=== PATIENT | male | born 1990 | race American Indian/Alaskan Native ===

== ENCOUNTER 2021-02-26 19:50 | Emergency (ER) | payer SELFPAY ==
--- NOTE | 2021-02-26 22:26 | Emergency Department Report ---
ED Abdominal Pain HPI - General Chief Complaint: Abdominal Pain Stated Complaint: LOWER AB PAIN Time Seen by Provider: 02/26/21 22:17 Source: patient Mode of arrival: Ambulatory Limitations: No Limitations - History of Present Illness Initial Comments: 30-year-old F Estonian male presents emerge department complaining of pain to the lower abdomen in a sharp fashion which radiates across the abdomen and down towards his testicle region associated with nausea but no vomiting. No fever, chills, sweats no hematuria no no dysuria no penile discharge no testicular swelling. No actual testicular pain. Reports no palliative factors noted. - Related Data Previous Rx's Medication Instructions Recorded Last Taken Type Ciprofloxacin HCl 500 mg PO BID #20 tablet 02/27/21 Unknown Rx Ketorolac [Toradol] 10 mg PO Q6H PRN #14 tablet 02/27/21 Unknown Rx Tamsulosin [Flomax] 0.4 mg PO QDAY #14 cap 02/27/21 Unknown Rx Allergies Allergy/AdvReac Type Severity Reaction Status Date / Time No Known Allergies Allergy Unverified 02/26/21 22:02 ED Review of Systems ROS: Stated complaint: LOWER AB PAIN Other details as noted in HPI Comment: All other systems reviewed and negative ED Past Medical Hx - Past Medical History Previous Medical History?: No - Surgical History Past Surgical History?: No - Medications Home Medications: Home Medications Medication Instructions Recorded Confirmed Last Taken Type Ciprofloxacin HCl 500 mg PO BID #20 tablet 02/27/21 Unknown Rx Ketorolac [Toradol] 10 mg PO Q6H PRN #14 tablet 02/27/21 Unknown Rx Tamsulosin [Flomax] 0.4 mg PO QDAY #14 cap 02/27/21 Unknown Rx ED Physical Exam - General Limitations: No Limitations General appearance: alert, in no apparent distress - Head Head exam: Present: atraumatic, normocephalic - Eye Eye exam: Present: normal appearance, PERRL - ENT ENT exam: Present: mucous membranes moist - Neck Neck exam: Present: normal inspection - Respiratory Respiratory exam: Present: normal lung sounds bilaterally. Absent: respiratory distress - Cardiovascular Cardiovascular Exam: Present: regular rate, normal rhythm. Absent: systolic murmur, diastolic murmur, rubs, gallop - GI/Abdominal GI/Abdominal exam: Present: soft, tenderness (Suprapubic tenderness with palpation. 10 the right lower quadrant as well. No Rovsing, no Alvarado Trevizo, no tenderness at McBurney's), normal bowel sounds - Rectal Rectal exam: Present: deferred - Extremities Exam Extremities exam: Present: normal inspection, full ROM, normal capillary refill - Back Exam Back exam: Present: normal inspection, CVA tenderness (R), CVA tenderness (L) - Neurological Exam Neurological exam: Present: alert, oriented X3, CN II-XII intact, normal gait - Psychiatric Psychiatric exam: Present: normal affect, normal mood - Skin Skin exam: Present: warm, dry, intact, normal color. Absent: rash, diaphoretic, erythema, pallor, abrasion, ecchymosis ED Medical Decision Making - Lab Data Result diagrams: 02/26/21 22:45 02/26/21 22:45 - Radiology Data Radiology results: report reviewed [address] [address] Cat Scan Report Signed Patient: MIGUEL REYES MR#: [id number] : 1990 Acct:[id number] Age/Sex: 30 / M ADM Date: 02/26/21 Loc: ED Attending Dr: Ordering Physician: LAYA BAH Date of Service: 02/26/21 Procedure(s): CT abdomen pelvis w con Accession Number(s): [id number] cc: LAYA BAH CT abdomen pelvis w con INDICATION / CLINICAL INFORMATION: Pt complains of lower abd pain that radiates to Testicles. TECHNIQUE: Axial CT images were obtained through the abdomen and pelvis after IV contrast. All CT scans at this location are performed using CT dose reduction for ALARA by means of automated exposure control. COMPARISON: None available. FINDINGS: LOWER CHEST: No significant abnormality LIVER: No significant abnormality GALLBLADDER/BILIARY TREE: No significant abnormality PANCREAS: No significant abnormality SPLEEN: No significant abnormality ADRENALS: No significant abnormality KIDNEYS / URETER: 8 mm stone is present within the right renal pelvis. There is adjacent urothelial thickening and inflammatory stranding. No significant hydronephrosis. Additional 3 mm nonobstructive stone is present within the lower pole the right kidney. Kidneys enhance symmetrically. No hydronephrosis on the left. URINARY BLADDER: Bladder is partially decompressed, though grossly unremarkable. REPRODUCTIVE ORGANS: No significant abnormality STOMACH / BOWEL: No significant abnormality. The appendix is normal in caliber. LYMPH NODES: No significant adenopathy. VASCULATURE: No significant abnormality. OTHER: No free air, free fluid, or focal fluid collection is identified. SKELETAL SYSTEM: No acute osseous findings. IMPRESSION: 1. 8 mm stone in the right renal pelvis. There is no significant hydronephrosis, though there is mild urothelial thickening and inflammatory stranding surrounding the renal pelvis, may reflect early obstruction. 2. Additional nonobstructive 3 mm stone in the right kidney. There is no renal or ureteral calculus or hydronephrosis on the left. 3. No other acute abnormality. Signer Name: Jaxon Razo MD Signed: 02/27/2021 12:43 AM Workstation Name: [id number] Transcribed By: MEAGHAN Dictated By: JAXON RAZO MD Electronically Authenticated By: JAXON RAZO MD Signed Date/Time: 02/27/2142 DD/ TD/TT: - Medical Decision Making Clinically the patient presents with nephrolithasis. IV pain medications, antiemetics, and IV fluids were given. A CT Abdomen/Pelvis was obtained for concern for a possible obstructing kidney stone and to rule out other pathologic conditions. The CT confirmed revealed a stone at the kidney and the junction. The patient's labs were significant for . With pain medication the patient improved significantly. The patient is referred to the on-call urologist for follow up and is discharged with oral narcotics for pain control, Flomax, antiemetics, and given the following return precautions: Fever > 100.5, pain not controlled with narcotics, vomiting or any other concerns and to strain the urine Critical care attestation.: If time is entered above; I have spent that time in minutes in the direct care of this critically ill patient, excluding procedure time. ED Disposition Clinical Impression: Kidney stones Disposition: 01 HOME / SELF CARE / HOMELESS Is pt being admited?: No Does the pt Need Aspirin: No Condition: Stable Instructions: Low-Purine Eating Plan, Kidney Stones, Kidney Stones, Tlfo-[id number]-[id number], Renal Colic, Laser Therapy for Kidney Stones Prescriptions: Ciprofloxacin HCl 500 mg PO BID #20 tablet Tamsulosin [Flomax] 0.4 mg PO QDAY #14 cap Ketorolac [Toradol] 10 mg PO Q6H PRN #14 tablet PRN Reason: Pain Referrals: [facility] [Provider Group] - 3-5 Days [facility] [Provider Group] - 3-5 Days [facility], [Primary Care Provider] - 3-5 Days
[2021-02-26 23:30] LABS: Alanine Aminotransferase 20 units/L (7-56); Albumin 4.3 g/dL (3.9-5); BUN/Creatinine Ratio 10; Bilirubin,Direct < 0.2 mg/dL (0-0.2); Blood Urea Nitrogen 8 mg/dL (9-20); Hemolysis Index 7
[2021-02-26 23:45] LABS: Basophils # (Auto) 0.1 K/mm3 (0.0-0.1); Eosinophils % (Auto) 0.5 % (0.0-4.3); Hematocrit 38.6 % (35.5-45.6); Hemoglobin 12.9 gm/dl (11.8-15.2); Lymphocytes # (Auto) 2.2 K/mm3 (1.2-5.4); Lymphocytes % (Auto) 25.4 % (13.4-35.0); Mean Corpuscular HGB Conc 33 % (32-34); Mean Corpuscular Volume 87 fl (84-94); Monocytes # (Auto) 0.7 K/mm3 (0.0-0.8); Monocytes % (Auto) 8.1 % (0.0-7.3); Platelet Count 294 K/mm3 (140-440); Red Blood Count 4.45 M/mm3 (3.65-5.03); Red Cell Distribution Width 13.2 % (13.2-15.2)
--- NOTE | 2021-02-27 00:48 | Cat Scan Report ---
CT abdomen pelvis w con INDICATION / CLINICAL INFORMATION: Pt complains of lower abd pain that radiates to Testicles. TECHNIQUE: Axial CT images were obtained through the abdomen and pelvis after IV contrast. All CT sc ans at this location are performed using CT dose reduction for ALARA by means of automated exposure c ontrol. COMPARISON: None available. FINDINGS: LOWER CHEST: No significant abnormality LIVER: No significant abnormality GALLBLADDER/BILIARY TREE: No significant abnormality PANCREAS: No significant abnormality SPLEEN: No significant abnormality ADRENALS: No significant abnormality KIDNEYS / URETER: 8 mm stone is present within the right renal pelvis. There is adjacent urothelial t hickening and inflammatory stranding. No significant hydronephrosis. Additional 3 mm nonobstructive s tone is present within the lower pole the right kidney. Kidneys enhance symmetrically. No hydronephro sis on the left. URINARY BLADDER: Bladder is partially decompressed, though grossly unremarkable. REPRODUCTIVE ORGANS: No significant abnormality STOMACH / BOWEL: No significant abnormality. The appendix is normal in caliber. LYMPH NODES: No significant adenopathy. VASCULATURE: No significant abnormality. OTHER: No free air, free fluid, or focal fluid collection is identified. SKELETAL SYSTEM: No acute osseous findings. IMPRESSION: 1. 8 mm stone in the right renal pelvis. There is no significant hydronephrosis, though there is mild urothelial thickening and inflammatory stranding surrounding the renal pelvis, may reflect early obs truction. 2. Additional nonobstructive 3 mm stone in the right kidney. There is no renal or ureteral calculus o r hydronephrosis on the left. 3. No other acute abnormality. Signer Name: Salo Razo MD Signed: 02/27/2021 12:43 AM Workstation Name: [id number]
[2021-02-27 03:11] VITALS: BP 139/84
== END 2021-02-27 02:30 | disposition home or self-care (01) ==
LOC: ED 19:50
DX: N20.0 Calculus of kidney (principal)
CPT/HCPCS: 36415; 74177; 80048; 80076; 83690; 85025; 99284; Q9967

== ENCOUNTER 2021-04-13 19:56 | Emergency (ER) | payer SELFPAY ==
[2021-04-13 20:11] VITALS: BP 135/81
[2021-04-13] MEDS ORDERED: ONDANSETRON 4 MG/2 ML INJ IV ONE (20:25)
[2021-04-13] MEDS ORDERED: SODIUM CHLORIDE 0.9% 1000 ML 1,000 ML IV ONE (20:25)
[2021-04-13] MEDS ORDERED: MORPHINE 4 MG/1 ML INJ IV ONE (20:25)
[2021-04-13 21:17] LABS: Basophils # (Auto) 0.1 K/mm3 (0.0-0.1); Basophils % (Auto) 1.3 % (0.0-1.8); Eosinophils # (Auto) 0.2 K/mm3 (0.0-0.4); Eosinophils % (Auto) 2.8 % (0.0-4.3); Hematocrit 38.2 % (35.5-45.6); Hemoglobin 12.5 gm/dl (11.8-15.2); Lymphocytes % (Auto) 43.5 % (13.4-35.0); Mean Corpuscular HGB Conc 33 % (32-34); Mean Corpuscular Volume 86 fl (84-94); Monocytes # (Auto) 0.8 K/mm3 (0.0-0.8); Monocytes % (Auto) 12.3 % (0.0-7.3); Platelet Count 256 K/mm3 (140-440); Red Blood Count 4.42 M/mm3 (3.65-5.03); Red Cell Distribution Width 12.6 % (13.2-15.2)
[2021-04-13 22:10] LABS: Alanine Aminotransferase 17 units/L (7-56); Albumin 4.1 g/dL (3.9-5); BUN/Creatinine Ratio 12; Blood Urea Nitrogen 11 mg/dL (9-20); Calcium 9.7 mg/dL (8.4-10.2); Hemolysis Index 44
--- NOTE | 2021-04-13 23:50 | Emergency Department Report ---
ED Abdominal Pain HPI - General Chief Complaint: Abdominal Pain Stated Complaint: ABDOMINAL PAIN/POSSIBLE KIDNEY STONE PUI?: No Source: patient Mode of arrival: Ambulatory Limitations: No Limitations - History of Present Illness Initial Comments: Patient is a 31-year-old -Kitt[place] male with a history of kidney stones who presents to the ED with complaint of acute onset persistent severe right flank pain that radiates to the right lower quadrant and suprapubic area with nausea and vomiting for the last 3 days. Patient states that the last kidney stones he had was about 3 or 4 weeks ago and that the current symptoms are similar to the previous symptoms when he had kidney stones. Patient denies fever, chills, diarrhea, dizziness, syncope, cough, traumatic injury, heavy lifting, hematuria, testicular pain, dysuria, urinary frequency and urgency, numbness and tingling or weakness of lower extremities bilaterally. MD Complaint: abdominal pain (Right lower quadrant), flank pain (Right flank pain) -: Sudden, days(s) (3) Location: RLQ, suprapubic, R flank Radiation: RLQ, suprapubic, R flank Migration to: no migration Severity: severe Severity scale (0 -10): 10 Quality: cramping, aching, sharp Consistency: constant Improves With: nothing Worsens With: movement Context: other (History of kidney stones) Associated Symptoms: nausea, vomiting, anorexia. denies: denies other symptoms, diarrhea, fever, constipation, dysuria, hematemesis, hematochezia, melena, syncope, other - Related Data Previous Rx's Medication Instructions Recorded Last Taken Type Ciprofloxacin HCl 500 mg PO BID #20 tablet 02/27/21 Unknown Rx Ketorolac [Toradol] 10 mg PO Q6H PRN #14 tablet 02/27/21 Unknown Rx Tamsulosin [Flomax] 0.4 mg PO QDAY #14 cap 02/27/21 Unknown Rx Ketorolac [Toradol] 10 mg PO Q8H PRN #20 tablet 04/14/21 Unknown Rx Ondansetron [Zofran Odt] 4 mg PO Q6HR PRN #20 tab.rapdis 04/14/21 Unknown Rx Sulfamethoxazole/Trimethoprim 1 each PO Q12H #20 tablet 04/14/21 Unknown Rx [Bactrim DS TAB] Tamsulosin [Flomax] 0.4 mg PO QDAY #14 cap 04/14/21 Unknown Rx oxyCODONE /ACETAMINOPHEN [Percocet 1 tab PO Q6HR PRN #12 tablet 04/14/21 Unknown Rx 5/325] Allergies Allergy/AdvReac Type Severity Reaction Status Date / Time No Known Allergies Allergy Unverified 02/26/21 22:02 ED Review of Systems ROS: Stated complaint: ABDOMINAL PAIN/POSSIBLE KIDNEY STONE Other details as noted in HPI Constitutional: denies: chills, fever Eyes: denies: eye pain, eye discharge, vision change ENT: denies: ear pain, throat pain Respiratory: denies: cough, shortness of breath, wheezing Cardiovascular: denies: chest pain, palpitations Endocrine: no symptoms reported Gastrointestinal: abdominal pain (Right flank pain that radiates to the right lower quadrant and suprapubic area), nausea, vomiting. denies: diarrhea Genitourinary: denies: urgency, dysuria Musculoskeletal: denies: back pain, joint swelling, arthralgia Skin: denies: rash, lesions Neurological: denies: headache, weakness, paresthesias Psychiatric: denies: anxiety, depression Hematological/Lymphatic: denies: easy bleeding, easy bruising ED Past Medical Hx - Past Medical History Previous Medical History?: No Hx Kidney Stones: Yes - Surgical History Past Surgical History?: No - Medications Home Medications: Home Medications Medication Instructions Recorded Confirmed Last Taken Type Ciprofloxacin HCl 500 mg PO BID #20 tablet 02/27/21 Unknown Rx Ketorolac [Toradol] 10 mg PO Q6H PRN #14 tablet 02/27/21 Unknown Rx Tamsulosin [Flomax] 0.4 mg PO QDAY #14 cap 02/27/21 Unknown Rx Ketorolac [Toradol] 10 mg PO Q8H PRN #20 tablet 04/14/21 Unknown Rx Ondansetron [Zofran Odt] 4 mg PO Q6HR PRN #20 tab.rapdis 04/14/21 Unknown Rx Sulfamethoxazole/Trimethoprim 1 each PO Q12H #20 tablet 04/14/21 Unknown Rx [Bactrim DS TAB] Tamsulosin [Flomax] 0.4 mg PO QDAY #14 cap 04/14/21 Unknown Rx oxyCODONE /ACETAMINOPHEN [Percocet 1 tab PO Q6HR PRN #12 tablet 04/14/21 Unknown Rx 5/325] ED Physical Exam - General Limitations: No Limitations General appearance: alert, in no apparent distress - Head Head exam: Present: atraumatic, normocephalic, normal inspection - Eye Eye exam: Present: normal appearance, PERRL, EOMI Pupils: Present: normal accommodation - ENT ENT exam: Present: normal exam, normal orophraynx, mucous membranes moist, TM's normal bilaterally, normal external ear exam - Neck Neck exam: Present: normal inspection, full ROM. Absent: tenderness - Respiratory Respiratory exam: Present: normal lung sounds bilaterally. Absent: respiratory distress, wheezes, rales, rhonchi, chest wall tenderness, accessory muscle use, decreased breath sounds, other - Cardiovascular Cardiovascular Exam: Present: normal rhythm, normal heart sounds. Absent: systolic murmur, diastolic murmur, rubs, gallop - GI/Abdominal GI/Abdominal exam: Present: soft, tenderness (Palpable right flank tenderness, no guarding or rebound), normal bowel sounds. Absent: guarding, rebound, hyperactive bowel sounds, hypoactive bowel sounds, organomegaly, mass - Extremities Exam Extremities exam: Present: normal inspection, full ROM, normal capillary refill - Back Exam Back exam: Present: normal inspection, full ROM. Absent: tenderness, CVA tenderness (R), CVA tenderness (L), muscle spasm, paraspinal tenderness, vertebral tenderness - Neurological Exam Neurological exam: Present: alert, oriented X3, CN II-XII intact, normal gait, reflexes normal - Psychiatric Psychiatric exam: Present: normal affect, normal mood - Skin Skin exam: Present: warm, dry, intact, normal color. Absent: rash ED Course Vital Signs 04/13/21 04/13/21 20:09 20:58 Temperature 98.0 F Pulse Rate 56 L Respiratory 16 20 Rate Blood Pressure 135/81 O2 Sat by Pulse 98 Oximetry ED Medical Decision Making - Lab Data Result diagrams: 04/13/21 20:32 04/13/21 20:32 - Radiology Data Radiology results: report reviewed, image reviewed [address] [address] Cat Scan Report Signed Patient: MIGUEL REYES MR#: [id number] : 1990 Acct:[id number] Age/Sex: 31 / M ADM Date: 04/13/21 Loc: ED Attending Dr: Ordering Physician: LAYA EDEN Date of Service: 04/13/21 Procedure(s): CT abdomen pelvis wo con Accession Number(s): [id number] cc: LAYA EDEN CT ABDOMEN AND PELVIS WITHOUT CONTRAST INDICATION / CLINICAL INFORMATION: Right flank pain. TECHNIQUE: Axial CT images were obtained through the abdomen and pelvis without IV contrast. All CT scans at this location are performed using CT dose reduction for ALARA by means of automated exposure control. COMPARISON: CT dated 02/27/21 FINDINGS: LOWER CHEST: No significant abnormality. LIVER: No significant abnormality. GALLBLADDER: No significant abnormality. BILE DUCTS: No significant abnormality. PANCREAS: No significant abnormality. SPLEEN: No significant abnormality. ADRENALS: No significant abnormality. RIGHT KIDNEY / URETER: 11 mm right pelvic stone has migrated to the ureteropelvic junction with mild hydronephrosis. 3 mm nonobstructing stone in the right renal pelvis. Mild right perinephric stranding. LEFT KIDNEY / URETER: No significant abnormality. STOMACH / SMALL BOWEL: No significant abnormality. COLON: No significant abnormality. APPENDIX: No significant abnormality. PERITONEUM: No free fluid. No free air. No fluid collection. LYMPH NODES: No significant adenopathy. AORTA / ARTERIES: No significant abnormality. IVC / VEINS: No significant abnormality. URINARY BLADDER: No significant abnormality. REPRODUCTIVE ORGANS: No significant abnormality. ADDITIONAL FINDINGS: None. SKELETAL SYSTEM: No significant abnormality. IMPRESSION: 1. 11 mm obstructing stone at the right ureteropelvic junction with mild right hydronephrosis. Signer Name: Danilo Adams MD Signed: 04/14/2021 3:15 AM Workstation Name: [id number] Transcribed By: DT Dictated By: Tremayne Adams MD Electronically Authenticated By: Tremayne Adams MD Signed Date/Time: 04/14/215 DD/ 0306 TD/TT: - Medical Decision Making This is a 31-year-old -Kitt[place] male with a history of kidney stones who presents to the ED with complaint of acute onset persistent severe right flank pain that radiates to the right lower quadrant and suprapubic area with nausea and vomiting for the last 3 days. Patient states that the last kidney stones he had was about 3 or 4 weeks ago and that the current symptoms are similar to the previous symptoms when he had kidney stones. In the ED, patient is alert and oriented x3 and is not in any distress. Patient was treated for pain in the ED and also given antiemetics, normal saline 1 L IV bolus. Abdomen pelvis CT scan with contrast showed an 11 mm right pelvic stone has migrated to the uretero pelvic junction with mild hydronephrosis. 3 mm nonobstructing stone in the right renal pelvis. Mild right perinephric. Patient received Rocephin 1 g IV x1. On reevaluation, patient's pain is well controlled medication. Patient will discharge home on pain medications, antibiotics and also given referral to the urologist Dr. Lucia for further evaluation. Patient was advised to contact the urologist office first thing in the morning on Friday, April 19, 2021 to schedule a follow-up appointment. - Differential Diagnosis Kidney stone; appendicitis; UTI; colitis; gastroenteritis Critical care attestation.: If time is entered above; I have spent that time in minutes in the direct care of this critically ill patient, excluding procedure time. ED Disposition Clinical Impression: Acute abdominal pain in right flank, Nausea and vomiting in adult patient, Kidney stone on right side, Acute urinary tract infection Disposition: 01 HOME / SELF CARE / HOMELESS Is pt being admited?: No Does the pt Need Aspirin: No Condition: Stable Instructions: Nausea and Vomiting, Adult, [id number], Flank Pain, Adult, [id number], Kidney Stones, [id number], Renal Colic, [id number], Urinary Tract Infection, Adult, [id number] Additional Instructions: All lab test results were reviewed and are all nonactionable except for urinalysis that showed urinary tract infection. Abdomen pelvis CT scan with contrast showed an 11 mm right pelvic stone has migrated to the ureteropelvic junction with mild hydronephrosis. 3 mm nonobstructing stone in the right renal pelvis. Mild right perinephric. Therefore take medications with food, drink plenty of fluids and follow-up with Dr. Lucia, the Urologist in 2 to 3 days for reevaluation. Return to the ED immediately if symptoms get worse. Prescriptions: Sulfamethoxazole/Trimethoprim [Bactrim DS TAB] 1 each PO Q12H #20 tablet Tamsulosin [Flomax] 0.4 mg PO QDAY #14 cap oxyCODONE /ACETAMINOPHEN [Percocet 5/325] 1 tab PO Q6HR PRN #12 tablet PRN Reason: Pain Ketorolac [Toradol] 10 mg PO Q8H PRN #20 tablet PRN Reason: Pain Ondansetron [Zofran Odt] 4 mg PO Q6HR PRN #20 tab.rapdis PRN Reason: Nausea [facility] - 3-5 Days BRENNAN LUCIA MD [Staff Physician] - 3-5 Days Forms: Work/School Release Form(ED) Time of Disposition: 06:08 Print Language: SLOVENIAN
[2021-04-14 00:42] LABS: Bilirubin,Urine NEG (Negative); Blood,Urine SM (Negative); Color,Urine Yellow (Yellow); Mucus,Urine FEW /HPF; Urobilinogen,Urine < 2.0 mg/dL (<2.0)
[2021-04-14] MEDS ORDERED: METOCLOPRAMIDE 10 MG/2 ML INJ IV ONE (00:59)
[2021-04-14] MEDS ORDERED: KETOROLAC 30 MG/1 ML INJ IV ONE (00:59)
[2021-04-14] MEDS ORDERED: cefTRIAXone/NS 1 GM/50 ML 1 GM/50 ML BAG IV ONE (00:59)
--- NOTE | 2021-04-14 03:19 | Cat Scan Report ---
CT ABDOMEN AND PELVIS WITHOUT CONTRAST INDICATION / CLINICAL INFORMATION: Right flank pain. TECHNIQUE: Axial CT images were obtained through the abdomen and pelvis without IV contrast. All CT scans at this location are performed using CT dose reduction for ALARA by means of automated exposure control. COMPARISON: CT dated 02/27/21 FINDINGS: LOWER CHEST: No significant abnormality. LIVER: No significant abnormality. GALLBLADDER: No significant abnormality. BILE DUCTS: No significant abnormality. PANCREAS: No significant abnormality. SPLEEN: No significant abnormality. ADRENALS: No significant abnormality. RIGHT KIDNEY / URETER: 11 mm right pelvic stone has migrated to the ureteropelvic junction with mild hydronephrosis. 3 mm nonobstructing stone in the right renal pelvis. Mild right perinephric stranding . LEFT KIDNEY / URETER: No significant abnormality. STOMACH / SMALL BOWEL: No significant abnormality. COLON: No significant abnormality. APPENDIX: No significant abnormality. PERITONEUM: No free fluid. No free air. No fluid collection. LYMPH NODES: No significant adenopathy. AORTA / ARTERIES: No significant abnormality. IVC / VEINS: No significant abnormality. URINARY BLADDER: No significant abnormality. REPRODUCTIVE ORGANS: No significant abnormality. ADDITIONAL FINDINGS: None. SKELETAL SYSTEM: No significant abnormality. IMPRESSION: 1. 11 mm obstructing stone at the right ureteropelvic junction with mild right hydronephrosis. Signer Name: Danilo Adams MD Signed: 04/14/2021 3:15 AM Workstation Name: [id number]
== END 2021-04-14 08:10 | disposition home or self-care (01) ==
LOC: ED 19:56
DX: N20.0 Calculus of kidney (principal); N39.0 Urinary tract infection, site not specified; Z79.899 Other long term (current) drug therapy
CPT/HCPCS: 36415; 74176; 80053; 81001; 83690; 85025; 87086; 96361; 96365; 96375; 99284; J0696; J2270; J2405; J7030